=== PATIENT | female | born 1990 | race Caucasian/White ===

== ENCOUNTER 2017-05-25 22:05 | Emergency (ER) | payer OTHER ==
[~2017-05-25] VITALS: Ht 157.5 cm; Wt 77.1 kg
--- OUTSIDE RECORDS SUMMARY | 2017-05-25 22:08 | XMS REPORT | Clinical Summary ---
Author Author [facility] Organization [facility] Address Unknown Phone Unavailable Care Team Providers Care Visual Basic Developer Name Role Phone Riri Marks MD PCP Allergies No Known Allergies Current Medications Not on file Active Problems Problem Noted Date 01/25/2016 Immunizations Name Dates Previously Given Next Due FLUCELVAX QUAD PF (0.5mL 01/28/2016 syringe) Tdap 01/28/2016 Social History Tobacco Use Types Packs/Day Years Used Date Never Smoker Alcohol Use Drinks/Week oz/Week Comments Defer Sex Assigned at Date Recorded Not on file Last Filed Vital Signs Not on file Plan of Treatment Not on file Results Not on fileafter 05/24/2016 Insurance Payer Benefit Subscriber ID Type Phone Address Plan / Group [employer] [id number] [facility] Home: [address] [place] [id number]
[2017-05-25] MEDS ORDERED: PROMETHAZINE HCL (IM) 25 MG/ML VIAL IM ONE (22:45)
[2017-05-25] MEDS ORDERED: HYDRALAZINE HCL 20 MG/ML VIAL IV ONE (22:45)
[2017-05-25] MEDS ORDERED: SODIUM CHLORIDE 0.9% 1000ML 1,000 ML ONE (22:45)
[2017-05-25] MEDS ORDERED: LOSARTAN POTASS25 MG (23:56)
[2017-05-25] MEDS ORDERED: LEVEMIR100 UNIT/1 (23:56)
[2017-05-26 00:39] VITALS: BP 159/80
== END 2017-05-26 00:40 | disposition home or self-care (01) ==
LOC: FSED 22:05
DX: R51 Headache (principal); I10 Essential (primary) hypertension; E11.9 Type 2 diabetes mellitus without complications
CPT/HCPCS: 70450; 80048; 81025; 85025; 96360; 99284; J0360; J2550; J7030